=== PATIENT | female | born 1960 | race Caucasian/White ===

== ENCOUNTER 2021-01-25 16:09 | Outpatient (CLI) | payer OTHER, SELFPAY ==
--- NOTE | ~2021-01-25 | CT_ITS ---
EXAMINATION: CT lung screening DATE: 01/25/2021 16:37 INDICATION: Personal history of tobacco dependence TECHNIQUE: Computed tomography (CT) of the chest was performed without intravenous contrast. The dose -length product was 145.87 mGy-cm. Automated exposure control and iterative reconstruction technique were employed. COMPARISON: CT dated 08/15/2018 FINDINGS: No significant pleural or pericardial effusion. Heart size is normal. No thoracic lymphaden opathy. Thyroid gland is unremarkable. No significant vascular abnormality. The upper abdomen is unre markable. There is emphysema. Stable 5 mm right lower lobe nodule, image 63. Mild thoracic spondylosi s. IMPRESSION: 1. Lung-RADS category 2: Benign appearance or behavior. Continue annual screening with noncontrast lo w-dose chest CT in 12 months. Reviewed, dictated and finalized at location A. IMPRESSION: 1. Lung-RADS category 2: Benign appearance or behavior. Continue annual screeni ng with noncontrast low-dose chest CT in 12 months.
== END 2021-01-25 16:10 | disposition home or self-care (01) ==
LOC: ANHIMG 16:21
PROVIDERS: PCP Family Medicine; Visit Provider Family Medicine
DX: Z12.2 Encounter for screening for malignant neoplasm of respiratory organs (principal); Z87.891 Personal history of nicotine dependence
CPT/HCPCS: 71271

== ENCOUNTER 2021-04-01 08:24 | Outpatient (CLI) | payer OTHER, SELFPAY ==
--- NOTE | ~2021-04-01 | MM_ITS ---
EXAMINATION: MM screening [facility] BI w andressa HISTORY: Screening TECHNIQUE: Craniocaudal and mediolateral oblique 3-D tomosynthesis images were obtained and synthetic 2-D images were generated. CAD analysis was submitted and interpreted. COMPARISON: Comparison to multiple prior studies sequentially, with oldest reviewed study dated 02/02. BREAST PARENCHYMAL COMPOSITION: There are scattered areas of fibroglandular density. FINDINGS: There is no evidence of suspicious mass, calcification, or architectural distortion to sugg est malignancy in either breast. There has been no suspicious interval change. IMPRESSION: 1. No mammographic evidence of malignancy. 2. Recommend routine screening mammography in one year. BI-RADS Category 1: Negative Reviewed, dictated and finalized at location A. TION ECONOMIST
--- NOTE | ~2021-04-01 | DEXA_ITS ---
Bone Density Report Name: BRENNEN OSORIO Age: 60 Sex: Female Ethnicity: White Date of : 1960 Indication: osteopenia; cancer; asthma or emphysema; post menopausal Referring Provider: YANA ROJAS Study: Bone densitometry was performed. Exam Date: April 01, 2021 Accession number: [id number] Bone Density: Region BMD T-score Z-score Classification AP Spine (L1-L4) 0.978 -0.6 1.0 Normal Femoral Neck (Left) 0.718 -1.2 0.2 Osteopenia Total Hip (Left) 0.836 -0.9 0.2 Normal Total Hip Bilateral Avg 0.850 -0.8 0.4 Normal Femoral Neck (Right) 0.738 -1.0 0.4 Normal Total Hip (Right) 0.863 -0.6 0.5 Normal World Health Organization criteria for BMD impression classify patients as: Normal (T-score at or above -1.0), Osteopenia (T-score between -1.0 and -2.5), or Osteoporosis (T-score at or below -2.5). 10-year Fracture Risk(1): Major Osteoporotic Fracture 7.5% Hip Fracture 0.5% Reported Risk Factors: [place] (), Neck BMD=0.718, BMI=32.8 (1) FRAX(R) Version 3.08. Fracture probability calculated for an untreated patient. Fracture probability may be lower if the patient has received treatment. Previous Exams: Region Exam Age BMD T-score BMD Change BMD Change Date g/cm2 vs Baseline vs Previous AP Spine(L1-L4) 04/01/2021 60 0.978 -0.6 -0.102(-9.4%)# 0.001(0.1%)# 02/25/2011 50 0.978 -0.6 -0.103(-9.5%)# -0.103(-9.5%)# 09/05/2005 45 1.080 0.3 Total Hip(Left) 04/01/2021 60 0.836 -0.9 -0.126(-13.1%) 0.037(4.6%)# 02/25/2011 50 0.799 -1.2 -0.163(-16.9%) -0.163(-16.9%) 09/05/2005 45 0.962 0.2 Total Hip(Right) 04/01/2021 60 0.863 -0.6 -0.098(-10.2%) 0.059(7.4%)# 02/25/2011 50 0.804 -1.1 -0.157(-16.4%) -0.157(-16.4%) 09/05/2005 45 0.961 0.2 *Denotes significance at 95% confidence level, LSC for AP Spine = 0.022 g/cm2, LSC for Total Hip = 0.027 g/cm2 Clinical Information Provided by Patient: Has used the following medications: Vitamin D Has the following medical conditions: Asthma or Emphysema, Cancer Patient maximum height was 66 Menopause Age: 46 No regular weight bearing exercise Drinks caffeinated beverages Onset of menses at age 11 Number of children 0 Impression: The patient has low bone mass, based on the Left Femoral Neck T-score. The patient has an estimated ten-year risk of hip fracture of 0.5% and an estimated ten-year risk of major fracture of 7.5%, based on the WHO FRAX a
== END 2021-04-01 08:25 | disposition home or self-care (01) ==
LOC: ANHIMG 08:28
PROVIDERS: PCP Family Medicine; Visit Provider Family Medicine
DX: Z12.31 Encounter for screening mammogram for malignant neoplasm of breast (principal); Z78.0 Asymptomatic menopausal state; M85.852 Other specified disorders of bone density and structure, left thigh
CPT/HCPCS: 77063; 77067; 77080

== ENCOUNTER 2021-11-15 00:37 | Day surgery (SDC) | payer OTHER, SELFPAY ==
[2021-10-28 13:06] VITALS: BMI 32.3
--- NOTE | 2021-10-28 13:55 | PC.NURSE ---
Pt instructed to omit Magnesium Citrate due to the recall of the product. Pt states understanding.
--- NOTE | 2021-11-14 10:33 | PM.HPGS ---
History of Present Illness History of Present Illness Consent: Risks, benefits, and alternatives have been discussed and questions answered. Patient agrees to proceed with procedure. Chief complaint: hx of colon ca Narrative: Angelica Rolon is a 61 year old female Who is status post right colectomy for stage II A colon cancer. The resection was done in 2005. at the time of her colonoscopy 6 years ago 1 small polyp was removed. Her last colonoscopy was about 3 years ago. Her previous colonoscopies had been done by , her colorectal surgeon. Review of Systems Review of Systems: All systems reviewed & are unremarkable except as noted in HPI and below PMFSH Past Medical History Medical History Benign essential HTN Chronic GERD Dysphagia GERD (gastroesophageal reflux disease) History of alcoholism History of colon cancer colonoscopy 08-23-18 normal / Mutch/ repeat in 2 years Mixed hyperlipidemia Normal colonoscopy 08-23-18 normal / Mutch/ repeat in 2 years Obesity Osteopenia Prediabetes Unilat ing hernia Family History Family History Grandparent Hypertension Other Family history of malignant neoplasm of ovary Family history of osteoporosis No family history of cardiovascular disease No family history of diabetes mellitus No family history of malignant neoplasm Social History Social History Smoking packs per day: 1 Smoking cigarettes per day: 20.0 Years smoked: 30 Smoking pack-years: 30.00 Smoking status: Former smoker Tobacco type: cigarettes Smoking end date: 04/03/18 Alcohol intake: current Drinks per week: 10 Living arrangements: alone Spiritual care concerns: No Meds Home Medications and Allergies Home Medications Medication Instructions Recorded Confirmed Type eccnuydj-lhp-MN 200 mcg-vit K 100 1 cap PO DAILY 02/14/19 11/15/21 History mcg-lycop 500 [id number] capsule (Daily Multivitamin) diclofenac sodium 75 mg 75 mg PO BID #180 tabs 06/07/21 11/15/21 Rx tablet,delayed release sertraline 50 mg tablet 50 mg PO DAILY #90 tabs 06/07/21 11/15/21 Rx telmisartan 20 mg tablet See Rx Instructions .Route 08/23/21 11/15/21 Rx .COMPLEX #90 tabs rosuvastatin 40 mg tablet See Rx Instructions .Route 08/26/21 11/15/21 Rx .COMPLEX #90 ea omeprazole 20 mg capsule,delayed See Rx Instructions .Route 09/24/21 11/15/21 Rx release .COMPLEX #90 caps Allergies Allergy/AdvReac Type Severity Reaction Status Date / Time No Known Allergies Allergy Mild Verified 11/15/21 09:18 Exam Resp: Auscultation: clear to auscultation bilaterally Cardio: Rate: regular rate Rhythm: regular rhythm GI: GI Palp: Yes Soft to palpation and No Tenderness to palpation present (GI) Assessment and Plan Assessment and plan (1) Colon cancer screening: Code(s): Z12.11 - Encounter for screening for malignant neoplasm of colon Status: Acute Assessment and Plan: Colonoscopy with possible biopsy or polypectomy or cautery or injection of substances. (2) History of colon cancer: Code(s): Z85.038 - Personal history of other malignant neoplasm of large intestine Status: Acute
--- NOTE | 2021-11-15 08:20 | WPDANESEPPF ---
Anes - Initial Pre Proc Eval Procedure: Operation Date: 11/15/21 10:30 Proposed Procedures p Screening Colonoscopy - Jose Arias MD Date/Time: 11/15/21 08:20 Surgeon: Jose Arias MD Pre Op Diagnosis: hx of colon ca Patient Data Age: 61 Gender: F Height: 1.68 m Weight: 91 kg Allergies Allergy/AdvReac Type Severity Reaction Status Date / Time No Known Allergies Allergy Mild Verified 11/15/21 09:18 Home Medications Medication Instructions Recorded Confirmed Type eakopsvz-wlg-UL 200 mcg-vit K 100 1 cap PO DAILY 02/14/19 11/15/21 History mcg-lycop 500 [id number] capsule (Daily Multivitamin) diclofenac sodium 75 mg 75 mg PO BID #180 tabs 06/07/21 11/15/21 Rx tablet,delayed release sertraline 50 mg tablet 50 mg PO DAILY #90 tabs 06/07/21 11/15/21 Rx telmisartan 20 mg tablet See Rx Instructions .Route 08/23/21 11/15/21 Rx .COMPLEX #90 tabs rosuvastatin 40 mg tablet See Rx Instructions .Route 08/26/21 11/15/21 Rx .COMPLEX #90 ea omeprazole 20 mg capsule,delayed See Rx Instructions .Route 09/24/21 11/15/21 Rx release .COMPLEX #90 caps Patient hx anesthesia problems: none Family hx anesthesia problems: none Results Review: All pre-operative results and documents have been reviewed as part of the pre-operative evaluation. [facility] Past Medical History Medical History Benign essential HTN Chronic GERD Dysphagia GERD (gastroesophageal reflux disease) History of alcoholism History of colon cancer colonoscopy 08-23-18 normal / Mutch/ repeat in 2 years Mixed hyperlipidemia Normal colonoscopy 08-23-18 normal / Mutch/ repeat in 2 years Obesity Osteopenia Prediabetes Unilat ing hernia Family History Family History Grandparent Hypertension Other Family history of malignant neoplasm of ovary Family history of osteoporosis No family history of cardiovascular disease No family history of diabetes mellitus No family history of malignant neoplasm Social History Social History (Reviewed 09/30/21 @ 13:53 by Angelica Rodriguez [facility]) Smoking packs per day: 1 Smoking cigarettes per day: 20.0 Years smoked: 30 Smoking pack-years: 30.00 Smoking status: Former smoker Tobacco type: cigarettes Smoking end date: 04/03/18 Alcohol intake: current Drinks per week: 10 Living arrangements: alone Spiritual care concerns: No Anes - Eval Final PreProcedure Day of Procedure 11/15/21 08:20 Patient weight: obese Heart: regular rate and rhythm Lungs: clear to auscultation Airway: Mallampati scale class II Neurological: alert and oriented Last oral intake: >/= 8 hours ASA classification: III Emergent: no Anesthetic plan: proceed Anesthesia type and monitoring: general GIVS and standard monitoring Results Review: All pre-operative results and documents have been reviewed as part of the pre-operative evaluation. Informed Consent: The patient's anesthetic plan and its attendant risks and benefits were discussed with the patient/family/POA. Questions were solicited and answers provided to the satisfaction of the patient/family/POA.
[2021-11-15 09:05] VITALS: BP 149/79; PULSE 98; RESP 18; TEMP 36.5; O2SAT 97; BMI 31.9
[2021-11-15] MEDS: LACTATED RINGERS 1,000 ML 150 ML IV CONT (09:29)
[2021-11-15 10:22] VITALS: BP 114/74; PULSE 84; RESP 17; O2SAT 94
[2021-11-15 10:32] VITALS: BP 124/79; PULSE 79; RESP 20; O2SAT 95
[2021-11-15 10:42] VITALS: BP 114/79; PULSE 79; RESP 20; O2SAT 94
== END 2021-11-15 10:54 | disposition home or self-care (01) ==
PROVIDERS: PCP Family Medicine; Visit Provider Internal Medicine Gastroenterology
PROC: 0DJD8ZZ Inspection of Lower Intestinal Tract, Via Natural or Artificial Opening Endoscopic (ICD-10-PCS; CPT 45378; principal; 2021-11-15 10:30)
DX: Z12.11 Encounter for screening for malignant neoplasm of colon (principal); K57.30 Diverticulosis of large intestine without perforation or abscess without bleeding; Z98.0 Intestinal bypass and anastomosis status; Z85.038 Personal history of other malignant neoplasm of large intestine; I10 Essential (primary) hypertension; K21.9 Gastro-esophageal reflux disease without esophagitis; R73.03 Prediabetes; F10.21 Alcohol dependence, in remission; Z87.891 Personal history of nicotine dependence; E66.9 Obesity, unspecified; Z68.32 Body mass index [BMI] 32.0-32.9, adult
CPT/HCPCS: 45378; J2704; J7120

== ENCOUNTER 2022-02-07 09:43 | Outpatient (CLI) | payer OTHER, SELFPAY ==
--- NOTE | ~2022-02-07 | CT_ITS ---
EXAMINATION: CT lung screening DATE: 02/07/2022 10:02 INDICATION: Personal history of nicotine dependence, prior smoker with 30 pack year history TECHNIQUE: Computed tomography (CT) of the chest was performed without intravenous contrast. The dose -length product (DLP) was 168.97 mGy-cm. Automated exposure control and iterative reconstruction tech [employer] were employed. COMPARISON: 01/25/2021 FINDINGS: There is mild emphysema. A 6 mm nodule in the medial aspect of the right lower lobe demonst rates slight increase in size since the comparison examination. No new pulmonary nodules are identifi ed. Minimal airspace opacities are seen posterior medially in the right lower lobe (image 82), likely infectious or inflammatory. No pleural effusion or pneumothorax. No pathologically enlarged thoracic lymph nodes are identified. The heart size is normal. Calcified coronary artery atherosclerosis is n oted. There is moderate thoracic spondylosis. IMPRESSION: 1. Lung-RADS category 4A: Suspicious. Findings for which additional diagnostic testing is recommended . Follow-up low-dose CT in three months is recommended. Reviewed, dictated and finalized at location B. TO CHIP COOKER MACHINE IMPRESSION: 1. Lung-RADS category 4A: Suspicious. Findings for which additional diagnostic testing is recommended. Follow-up low-dose CT in three months is recommended.
== END 2022-02-07 09:44 | disposition home or self-care (01) ==
PROVIDERS: PCP Family Medicine; Visit Provider Family Medicine
DX: Z12.2 Encounter for screening for malignant neoplasm of respiratory organs (principal); Z87.891 Personal history of nicotine dependence; J43.9 Emphysema, unspecified; R91.8 Other nonspecific abnormal finding of lung field
CPT/HCPCS: 71271

== ENCOUNTER 2022-05-11 14:55 | Outpatient (CLI) | payer OTHER, SELFPAY ==
--- NOTE | ~2022-05-11 | CT_ITS ---
EXAMINATION: CT lung screening DATE: 05/11/2022 15:13 INDICATION: Personal history nicotine dependence, prior smoker with 30 pack year history TECHNIQUE: Computed tomography (CT) of the chest was performed without intravenous contrast. The dose -length product (DLP) was 187.45 mGy-cm. Automated exposure control and iterative reconstruction tech [employer] were employed. COMPARISON: 02/07/2022 FINDINGS: There is a stable 6 mm nodule in the medial aspect of the right lower lobe on image 66. The re is mild emphysema. There is a 1.5 x 0.7 cm subcentimeter nodule in the medial aspect of the right lower lobe which persists. No pleural effusion or pneumothorax. No pathologically enlarged thoracic l ymph nodes are identified. The heart size is normal. Calcified coronary artery atherosclerosis is not ed. There is moderate thoracic spondylosis. IMPRESSION: 1. Lung-RADS category 2: Benign appearance or behavior. Continue annual screening with noncontrast lo w-dose chest CT in 12 months. Reviewed, dictated and finalized at location B. RNOR ASSEMBLER IMPRESSION: 1. Lung-RADS category 2: Benign appearance or behavior. Continue annual screeni ng with noncontrast low-dose chest CT in 12 months.
--- NOTE | ~2022-05-11 | MM_ITS ---
EXAMINATION: MM screening [facility] BI w andressa HISTORY: Screening mammogram TECHNIQUE: Craniocaudal and mediolateral oblique 3-D tomosynthesis images were obtained and synthetic 2-D images were generated. CAD analysis was submitted and interpreted. COMPARISON: 04/01/2021, 01/08/2019, 03/14/2017 bilateral screening mammogram examinations BREAST PARENCHYMAL COMPOSITION: There are scattered areas of fibroglandular density. FINDINGS: There is no evidence of suspicious mass, calcification, or architectural distortion to sugg est malignancy in either breast. There has been no suspicious interval change. IMPRESSION: 1. No mammographic evidence of malignancy. 2. Recommend routine screening mammography in one year. BI-RADS Category 1: Negative Reviewed, dictated and finalized at location A. ATION GENERAL MANAGER
== END 2022-05-11 14:56 | disposition home or self-care (01) ==
PROVIDERS: PCP Family Medicine; Visit Provider Family Medicine
DX: Z12.2 Encounter for screening for malignant neoplasm of respiratory organs (principal); Z87.891 Personal history of nicotine dependence; Z12.31 Encounter for screening mammogram for malignant neoplasm of breast
CPT/HCPCS: 71271; 77063; 77067

== ENCOUNTER 2023-09-13 10:12 | Outpatient (CLI) | payer MEDICARE, OTHER, SELFPAY ==
--- NOTE | ~2023-09-13 | US_ITS ---
Abdominal Sonogram: Real-time sonographic imaging of the abdomen was performed. Clinical History: Other abnormal findings of blood chemistry Findings: The liver appears echogenic, with no evidence of mass lesion or bile duct dilatation. Main portal vein demonstrates normal direction of flow. The spleen is normal in size without evidence of focal lesion. The gallbladder is well distended, and appears normal with no evidence of gallstone or wall thickening. The common bile duct measures 4 mm. The visualized pancreas, aorta, and IVC are un remarkable. The right kidney measures 10.0 cm in length and the left kidney measures 9.6 cm. There is no hydronephrosis or renal calculus. Impression: Diffuse fatty infiltration of the liver. Reviewed, dictated and finalized at location M. Impression: Diffuse fatty infiltration of the liver.
== END 2023-09-13 10:13 ==
LOC: MICIMG 10:13
PROVIDERS: PCP Family Medicine; Visit Provider Family Medicine
DX: R79.89 Other specified abnormal findings of blood chemistry (principal); K76.0 Fatty (change of) liver, not elsewhere classified
CPT/HCPCS: 76700

== ENCOUNTER 2023-09-18 12:32 | Outpatient (CLI) | payer MEDICARE, OTHER, SELFPAY ==
--- NOTE | 2023-09-19 13:37 | WPDPFTINT ---
PFT Procedure Performed PFT Procedure Performed Spirometry with Pre/Post Bronchodilator Plethysmography (Lung Vol) Diffusing Cap (DLCO) Flow Vol Loop PFT Interpretation Lung volumes were measured with the body plethysmography method. Lung volumes are unremarkable. Spirometry showed normal expiratory flow rates but a borderline diminished FEV1 to FVC ratio 65%, indicative of obstructive airway disease. Following administration of a bronchodilator there was significant increase in the forced vital capacity. Lung diffusion capacity is within the normal range at 74% predicted. The flow-volume loop is unremarkable. Impression: Mild obstructive airway disease with significant response to bronchodilators on this testing. Lung diffusion capacity within the normal range.
== END 2023-09-18 12:33 | disposition home or self-care (01) ==
PROVIDERS: PCP Family Medicine; Visit Provider Family Medicine
DX: J43.9 Emphysema, unspecified (principal)
CPT/HCPCS: 94060; 94726; 94729

== ENCOUNTER 2023-12-28 14:00 | Outpatient (CLI) | payer MEDICARE, OTHER, SELFPAY ==
--- NOTE | ~2023-12-28 | DEXA_ITS ---
Bone Density Report Name: BRENNEN OSORIO Age: 63 Sex: Female Ethnicity: White Date of : 1960 Indication: postmenopausal; screening for osteoporosis; height loss; cancer; asthma or emphysema ; Referring Provider: YANA ROJAS Study: Bone densitometry was performed. Exam Date: December 28, 2023 Accession number: [id number] Bone Density: Region BMD T-Score Z-Score Classification AP Spine (L1-L4) 1.047 0.0 1.8 Normal Femoral Neck (Left) 0.703 -1.3 0.2 Osteopenia Total Hip (Left) 0.853 -0.7 0.5 Normal Femoral Neck (Right) 0.721 -1.2 0.4 Osteopenia Total Hip (Right) 0.878 -0.5 0.7 Normal Total Hip Mean 0.866 -0.6 0.6 Normal World Health Organization criteria for BMD impression classify patients as: Normal (T -score at or above -1.0) Osteopenia (T -score between -1.0 and -2.5) or Osteoporosis (T -score at or below -2.5) 10?year Fracture Risk (1) : Major Osteoporotic Fracture 8.2% Hip Fracture 0.8% Reported Risk Factors: [place] () , Neck BMD=O.703, BMI=31.8 (1) FRAX@ Version 3.08. Fracture probability calculated for an untreated patient. Fracture probability may be lower if the patient has received treatment. Clinical Information Provided by Patient : Has used the following medications: Vitamin D, multi vitiman Has the following medical conditions: Asthma or Emphysema, Cancer Patient maximum height was 66 Menopause Age: 46 No regular weight bearing exercise Does not regularly consume dairy products Drinks caffeinated beverages Onset of menses at age 10 Number of children 0 Impression: The patient has low bone mass, based on the Left Femoral Neck T- score. The patient has an estimated ten?year risk of hip fracture of 0.8% and an estimated ten-year risk of major fracture of 8.2%, based on the WHO FRAX algorithm. Discussion: BONE DENSITY IS LOW AT ONE OR MORE SKELETAL SITES. This patient's lowest T-score is low at one or more skeletal sites. It meets the World Health Organization's (WHO) criteria for low bone mass ??? (T-score between -1.0 and -2.5) . The patient's 10-year risk of fracture as calculated by FRAX is less than the threshold where pharmacological therapy is recommended by the National Osteoporosis Foundation (NOF) . However, all treatment decisions require clinical judgment and consideration of individual patient factors, including patient preferences, comorbidities, previous drug use, risk factors not captured in the FRAX model (e.g., frailty, falls, vitamin D deficiency, increased bone turnover, interval significant decline in bone density) and possible under or overestimation of fracture risk by FRAX. The patient should follow a healthful lifestyle (good nutrition with adequate calcium and vitamin D ; and appropriate weight?bearing exercise) . Follow-Up: Consider repeating this study in 2 to 3 years to reassess this patient's status, or sooner if there is some new clinical indication. Reported by: HILARIA on 01/18/2024 9: 07 : 00 AM. MTDShin
--- NOTE | ~2023-12-28 | MM_ITS ---
EXAMINATION: MM screening david BI w andressa HISTORY: Screening TECHNIQUE: Craniocaudal and mediolateral oblique 3-D tomosynthesis images were obtained and synthetic 2-D images were generated. CAD analysis was submitted and interpreted. COMPARISON: Comparison to multiple prior studies sequentially, with oldest reviewed study dated 06/2014. BREAST PARENCHYMAL COMPOSITION: Not dense: There are scattered areas of fibroglandular density. FINDINGS: There is no evidence of suspicious mass, calcification, or architectural distortion to sugg est malignancy in either breast. There has been no suspicious interval change. IMPRESSION: 1. No mammographic evidence of malignancy. 2. Recommend routine screening mammography in one year. BI-RADS Category 1: Negative Reviewed, dictated and finalized at location B.
== END 2023-12-28 14:01 | disposition home or self-care (01) ==
PROVIDERS: PCP Family Medicine; Visit Provider Family Medicine
DX: Z12.31 Encounter for screening mammogram for malignant neoplasm of breast (principal); M85.89 Other specified disorders of bone density and structure, multiple sites; Z78.0 Asymptomatic menopausal state
CPT/HCPCS: 77063; 77067; 77080

== ENCOUNTER 2024-01-27 10:05 | Outpatient (CLI) | payer MEDICARE, OTHER, SELFPAY ==
--- NOTE | ~2024-01-27 | CT_ITS ---
EXAMINATION:CT lung screening DATE: 01/27/2024 10:31 INDICATION: Personal history of nicotine dependence. Smoker who quit 4 years ago with 30 pack year hi story. TECHNIQUE: Computed tomography (CT) of the chest was performed without intravenous contrast. Automate d exposure control and iterative reconstruction technique were employed. The dose-length product (DLP ) was 129.02 mGy-cm. COMPARISON: Chest CT 05/11/2022 FINDINGS: There is mild scarring at the lung apices. There is moderate emphysema. There is a 6 mm nod ule abutting the pleura in right lower lobe without change. No pleural effusion. The heart size is no rmal. There are coronary artery calcifications. No pericardial effusion. There is severe cervical spo ndylosis and moderate thoracic spondylosis. IMPRESSION: 1. Lung-RADS category 2: Benign appearance or behavior. Continue annual screening with noncontrast lo w-dose chest CT in 12 months. Reviewed, dictated and finalized at location A. IMPRESSION: 1. Lung-RADS category 2: Benign appearance or behavior. Continue annual screeni ng with noncontrast low-dose chest CT in 12 months.
== END 2024-01-27 10:06 | disposition home or self-care (01) ==
LOC: ANHIMG 10:08
PROVIDERS: PCP Family Medicine; Visit Provider Family Medicine
DX: Z12.2 Encounter for screening for malignant neoplasm of respiratory organs (principal); Z87.891 Personal history of nicotine dependence
CPT/HCPCS: 71271

== ENCOUNTER 2025-01-27 10:20 | Outpatient (CLI) | payer MEDICARE, OTHER, SELFPAY ==
--- NOTE | ~2025-01-27 | CT_ITS ---
EXAMINATION:CT lung screening DATE: 01/27/2025 10:36 INDICATION: Personal history of nicotine dependence. TECHNIQUE: Computed tomography (CT) of the chest was performed without intravenous contrast. Automated exposure control and iterative reconstruction technique were employed. The dose-length product (DLP) was 126.97 mGy-cm. COMPARISON: Chest CT 01/27/2024 FINDINGS: There is moderate emphysema. There is a stable 6 mm nodule in right lower lobe. No pleural effusion. The heart size is normal. There are coronary artery calcifications. No pericardial effusion. There is severe thoracic spondylosis. IMPRESSION: 1. Lung-RADS category 2: Benign appearance or behavior. Continue annual screening with noncontrast low-dose chest CT in 12 months. Reviewed, dictated and finalized at location E. IMPRESSION: 1. Lung-RADS category 2: Benign appearance or behavior. Continue annual screeni ng with noncontrast low-dose chest CT in 12 months.
== END 2025-01-27 10:21 | disposition home or self-care (01) ==
PROVIDERS: PCP Family Medicine; Visit Provider Family Medicine
DX: Z12.2 Encounter for screening for malignant neoplasm of respiratory organs (principal); Z87.891 Personal history of nicotine dependence
CPT/HCPCS: 71271

== ENCOUNTER 2025-02-11 13:41 | Outpatient (CLI) | payer MEDICARE, OTHER, SELFPAY ==
--- NOTE | ~2025-02-11 | MM_ITS ---
EXAMINATION: MM screening [facility]id BI w andressa HISTORY: Screening TECHNIQUE: Craniocaudal and mediolateral oblique 3-D tomosynthesis images were obtained and synthetic 2-D images were generated. CAD analysis was submitted and interpreted. COMPARISON: Comparison to multiple prior studies sequentially, with oldest reviewed study dated 03/09/2016. BREAST PARENCHYMAL COMPOSITION: Not dense: There are scattered areas of fibroglandular density. FINDINGS: There is no evidence of suspicious mass, calcification, or architectural distortion to suggest malignancy in either breast. There has been no suspicious interval change. IMPRESSION: 1. No mammographic evidence of malignancy. 2. Recommend routine screening mammography in one year. BI-RADS Category 1: Negative Reviewed, dictated and finalized at location B. T OFFICE JAVA DEVELOPER
== END 2025-02-11 13:42 | disposition home or self-care (01) ==
LOC: ANHFOHIMG 13:43
PROVIDERS: PCP Family Medicine; Visit Provider Family Medicine
DX: Z12.31 Encounter for screening mammogram for malignant neoplasm of breast (principal)
CPT/HCPCS: 77063; 77067